=== PATIENT | male | born 1965 | race Caucasian/White ===

== ENCOUNTER 2017-01-25 10:40 | Emergency (ER) | payer BC, MEDICAID ==
--- NOTE | 2017-01-25 11:02 | EKG ---
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
[2017-01-25 11:30] VITALS: BP 110/79
[2017-01-25] MEDS ORDERED: DEXAMETHASONE 4 MG TABLET PO STA (11:35)
[2017-01-25] MEDS ORDERED: IBUPROFEN 400 MG TABLET. PO ONE (11:45)
--- NOTE | 2017-01-25 12:11 | RAD ---
Chest, 2 views, 01/25/2017: History: Chest pain with cough Comparison is made to a study from 09/21/2016. The heart size and pulmonary vascularity are normal. No pulmonary infiltrates are seen. There is no evidence of pleural fluid. Moderate spurring is present in the spine. IMPRESSION: No acute cardiopulmonary abnormality is detected.
--- NOTE | 2017-01-25 12:38 | PHYS DOC ---
Past Medical History Past Medical History: Bipolar, Depression, Seizure, TIA Additional Past Medical Histor: graves disease Past Surgical History: No Surgical History Alcohol Use: None Drug Use: None Adult General Chief Complaint Chief Complaint: CHEST PAIN HPI HPI Patient is a 51 year old male who presents by EMS from outpatient psychiatric facility. He notes 3 days of rhinorrhea, dry cough, and chest pain with cough. States this feels exactly like prior episodes of bronchitis. States he was waiting at an outpatient psychiatric facility to discuss something with administration when someone noted possible right facial droop and called EMS for him. He denies ever having neurologic symptoms and did not want to come to the emergency department for this, however he was talked into it. He denies numbness, tingling, weakness, headache, vision changes, dizziness, orthopnea, dyspnea, abdominal pain, nausea or vomiting, fever or chills. He does also note recent psychosocial stressors and admits to chronic depression from this. He denies suicidal ideation, homicidal ideation, or hallucinations. Review of Systems Review of Systems Constitutional: Denies fever or chills [] Eyes: Denies change in visual acuity, redness, or eye pain [] HENT: Denies sore throat [] Respiratory: Denies shortness of breath [] Cardiovascular: No additional information not addressed in HPI [] GI: Denies abdominal pain, nausea, vomiting, bloody stools or diarrhea [] : Denies dysuria or hematuria [] Musculoskeletal: Denies back pain or joint pain [] Integument: Denies rash or skin lesions [] Neurologic: Denies headache, focal weakness or sensory changes [] Endocrine: Denies polyuria or polydipsia [] Current Medications Current Medications Current Medications Medications (Trade) Dose Ordered Sig/Edison Start Time Stop Time Status Last Admin Dose Admin Dexamethasone (Decadron) 10 mg 1X STAT 01/25/17 11:35 01/25/17 11:38 DC 01/25/17 12:00 10 MG Ibuprofen (Motrin) 400 mg 1X ONCE 01/25/17 11:45 01/25/17 11:46 DC 01/25/17 12:16 400 MG Allergies Allergies Allergies Coded Allergies Type Severity Reaction Last Updated Verified No Known Drug Allergies 02/15/14 No Physical Exam Physical Exam Constitutional: Well developed, well nourished, no acute distress, non-toxic appearance. [] HENT: Normocephalic, atraumatic, bilateral external ears normal, oropharynx moist, no oral exudates, nose normal. [] Eyes: PERRLA, EOMI, conjunctiva normal, no discharge. [] Neck: Normal range of motion, no tenderness, supple, no stridor. [] Cardiovascular:Heart rate regular rhythm [] Lungs & Thorax: Bilateral breath sounds clear to auscultation [] Abdomen: Bowel sounds normal, soft, no tenderness. [] Skin: Warm, dry, no erythema, no rash. [] Back: Normal range of motion. [] Extremities: No tenderness, ROM intact, no edema on the palpable cord. [] Neurologic: Alert and oriented X 3, normal motor function, normal sensory function, no focal deficits noted. [] Psychologic: Affect normal, judgement normal, mood normal. [] Current Patient Data Vital Signs Vital Signs Date Time Temp Pulse Resp B/P Pulse Ox O2 Delivery O2 Flow Rate FiO2 01/25/17 11:30 70 24 110/79 96 Room Air 01/25/17 11:25 97.5 97.5 EKG EKG EKG as interpreted by me as normal sinus rhythm, rate 70, no ST-T changes, normal intervals, no ectopy Radiology/Procedures Radiology/Procedures Chest xray as interpreted by me with no acute cardiopulmonary disease process Course & Med Decision Making Course & Med Decision Making Pertinent Labs and Imaging studies reviewed. (See chart for details) He appears well on exam. Discussed symptomatic care for likely viral bronchitis. Return precautions given. He understands and agrees with plan. Dragon Disclaimer Dragon Disclaimer This electronic medical record was generated, in whole or in part, using a voice recognition dictation system. Departure Departure Impression: Primary Impression: Bronchitis Additional Impression: Depression Disposition: HOME, SELF-CARE Condition: STABLE Referrals: NO PCP (PCP) Patient Instructions: Acute Bronchitis, [id number] Additional Instructions: Take ibuprofen as needed for pain. Follow-up with your primary care doctor and psychiatrist within one week. Return for any concerns. Scripts No Active Prescriptions or Reported Meds Problem Qualifiers Additional Impression: Depression Depression Type: unspecified Qualified Code: F32.9 - Major depressive disorder, single episode, unspecified Jaspreet HERMAN MD Jan 25, 2017 12:38
== END 2017-01-25 12:50 | disposition home or self-care (01) ==
LOC: ER 10:40
DX: J40 Bronchitis, not specified as acute or chronic (principal); F32.9 Major depressive disorder, single episode, unspecified; F31.9 Bipolar disorder, unspecified; E05.00 Thyrotoxicosis with diffuse goiter without thyrotoxic crisis or storm; Z86.73 Personal history of transient ischemic attack (TIA), and cerebral infarction without residual deficits
CPT/HCPCS: 71020; 93005; 99284; J8540

== ENCOUNTER 2017-08-24 14:27 | Emergency (ER) | payer BC, MEDICAID ==
[~2017-08-24] VITALS: Ht 172.7 cm; Wt 96.2 kg
[2017-08-24] MEDS ORDERED: fentaNYL PF VIAL 100 MCG/2 ML VIAL IV ONE (15:15)
[2017-08-24 15:35] LABS: BASO # 0.1 x10^3/uL (0.0-0.2); BASO % 1 % (0-3); EOS % 4 % (0-3); HEMATOCRIT 44.6 % (39.0-53.0); HEMOGLOBIN 14.9 g/dL (13.0-17.5); LYMPH # 1.6 x10^3/uL (1.0-4.8); LYMPH % 30 % (24-48); MEAN CORPUSCULAR HEMOGLOBIN 30 pg (25-35); MEAN CORPUSCULAR HGB CONC 34 g/dL (31-37); MEAN CORPUSCULAR VOLUME 90 fL (79-100); MONO % 8 % (0-9); NEUT % 57 % (31-73); PLATELET COUNT 161 x10^3/uL (140-400); RED BLOOD COUNT 4.95 x10^6/uL (4.30-5.70); RED CELL DISTRIBUTION WIDTH 13.4 % (11.5-14.5); WHITE BLOOD COUNT 5.2 x10^3/uL (4.0-11.0)
[2017-08-24 15:45] LABS: INR 1.1 (0.8-1.1); PROTHROMBIN TIME PATIENT 13.5 SEC (11.7-14.0)
--- NOTE | 2017-08-24 15:58 | RAD ---
PQRS Compliance Statement: One or more of the following individualized dose reduction techniques were utilized for this examination: 1. Automated exposure control 2. Adjustment of the mA and/or kV according to patient size 3. Use of iterative reconstruction technique CT HEAD WITHOUT CONTRAST History: STROKE right-sided weakness since yesterday. Comparison: CT head without contrast, 09/21/2016. Procedure: Axial images are obtained of the head from the skull base through the vertex without IV contrast. Findings: Martin-white matter differentiation is preserved. The ventricles and sulci are normal for the patient's age.. No mass-effect, midline shift, hemorrhage or obvious acute infarction is identified. Basilar cisterns are patent. Bone windows demonstrate no significant calvarial abnormality.The visualized paranasal sinuses appear clear. Mastoid air cells are well aerated. IMPRESSION: No acute intracranial abnormality. Critical result, code stroke called to Dr. Pope in the ED at 3:52 PM.
[2017-08-24 16:29] LABS: CREATININE 0.7 mg/dL (0.7-1.3)
--- NOTE | 2017-08-24 16:31 | RAD ---
AP PORTABLE CHEST Clinical Indication: arrythmia. Right-sided weakness Comparison: Two-view chest 01/25/2017. Findings: The cardiomediastinal silhouette is normal. Lungs are clear. There is no pneumothorax. No pleural effusion is appreciated. There is no acute bone abnormality. IMPRESSION: No acute cardiopulmonary process.
[2017-08-24 16:35] LABS: ALBUMIN 3.3 g/dL (3.4-5.0); ALBUMIN/GLOBULIN RATIO 1.1 (1.0-1.7); TOTAL BILIRUBIN 0.3 mg/dL (0.2-1.0); TOTAL PROTEIN 6.3 g/dL (6.4-8.2)
[2017-08-24] MEDS ORDERED: CONTRAST GIVEN MC PRN (17:15)
[2017-08-24] MEDS ORDERED: IOHEXOL 300 MG/ML 100ML VIAL. IV ONE (17:15)
--- NOTE | 2017-08-24 17:28 | PHYS DOC ---
Past Medical History Past Medical History: Bipolar, Depression, Seizure, TIA Additional Past Medical Histor: graves disease Past Surgical History: No Surgical History Alcohol Use: None Drug Use: None Adult General Chief Complaint Chief Complaint: MULTIPLE COMPLAINTS HPI HPI Patient is a 52 year old stair headache, neck pain, right lower extremity, right upper extremity and is starting approximately 11 AM. Associated symptoms include mild nausea. No medications or therapy's taken prior to ED arrival. Patient denies change of vision, change of speech, extremity weakness, chest pain palpitations or shortness of air. Denies history of headaches. No falls or injuries. No other symptoms or complaints. Patient is a smoker. Denies chronic medical illness. Does not see a doctor on a routine basis. [] Review of Systems Review of Systems Review symptoms as per history of present illness. All other review symptoms are negative. [] All other systems were reviewed and found to be within normal limits, except as documented in this note. Current Medications Current Medications Current Medications Medications (Trade) Dose Ordered Sig/Edison Start Time Stop Time Status Last Admin Dose Admin Fentanyl Citrate (Fentanyl 2ml Vial) 50 mcg 1X ONCE 08/24/17 15:15 08/24/17 15:16 DC 08/24/17 15:32 50 MCG Info (Do NOT chart on this entry -- for MONITORING) 1 each PRN DAILY PRN 08/24/17 17:15 08/26/17 17:14 Iohexol (Omnipaque 300 Mg/ml) 75 ml 1X ONCE 08/24/17 17:15 08/24/17 17:16 DC 08/24/17 17:38 75 ML Allergies Allergies Allergies Coded Allergies Type Severity Reaction Last Updated Verified No Known Drug Allergies 02/15/14 No Physical Exam Physical Exam Constitutional: Well developed, well nourished, no acute distress, non-toxic appearance. [] HENT: Normocephalic, atraumatic, bilateral external ears normal, oropharynx moist, no oral exudates, nose normal. [] Eyes: PERRLA, EOMI, conjunctiva normal, no discharge. [] Neck: Normal range of motion, no neck stiffness. [] Cardiovascular:Heart rate regular rhythm, no murmur [] Lungs & Thorax: Bilateral breath sounds clear to auscultation [] Abdomen: Bowel sounds normal, soft, no tenderness, no masses, no pulsatile masses. [] Extremities: No tenderness, R lower extremity swelling. [] Neurologic: Alert and oriented X 3, CN 2-12, grossly intact, normal motor function, sensation, right upper right lower extremities, NIH stroke score of 2 per nurse stroke assessment. [] Psychologic: Affect normal, judgement normal, mood normal. [] Current Patient Data Vital Signs Vital Signs Date Time Temp Pulse Resp B/P (MAP) Pulse Ox O2 Delivery O2 Flow Rate FiO2 08/24/17 17:53 59 16 135/93 (107) 97 Room Air Lab Values Laboratory Tests Test 08/24/17 15:18 White Blood Count 5.2 x10^3/uL (4.0-11.0) Red Blood Count 4.95 x10^6/uL (4.30-5.70) Hemoglobin 14.9 g/dL (13.0-17.5) Hematocrit 44.6 % (39.0-53.0) Mean Corpuscular Volume 90 fL (79-100) Mean Corpuscular Hemoglobin 30 pg (25-35) Mean Corpuscular Hemoglobin Concent 34 g/dL (31-37) Red Cell Distribution Width 13.4 % (11.5-14.5) Platelet Count 161 x10^3/uL (140-400) Neutrophils (%) (Auto) 57 % (31-73) Lymphocytes (%) (Auto) 30 % (24-48) Monocytes (%) (Auto) 8 % (0-9) Eosinophils (%) (Auto) 4 % (0-3) H Basophils (%) (Auto) 1 % (0-3) Neutrophils # (Auto) 3.0 x10^3uL (1.8-7.7) Lymphocytes # (Auto) 1.6 x10^3/uL (1.0-4.8) Monocytes # (Auto) 0.4 x10^3/uL (0.0-1.1) Eosinophils # (Auto) 0.2 x10^3/uL (0.0-0.7) Basophils # (Auto) 0.1 x10^3/uL (0.0-0.2) Prothrombin Time 13.5 SEC (11.7-14.0) Prothrombin Time INR 1.1 (0.8-1.1) PTT 30 SEC (24-38) D-Dimer (Yesica) 0.28 ug/mlFEU (0.00-0.50) Sodium Level 142 mmol/L (136-145) Potassium Level 4.0 mmol/L (3.5-5.1) Chloride Level 106 mmol/L (98-107) Carbon Dioxide Level 28 mmol/L (21-32) Anion Gap 8 (6-14) Blood Urea Nitrogen 17 mg/dL (8-26) Creatinine 0.7 mg/dL (0.7-1.3) Estimated GFR (Cockcroft-Gault) 118.0 BUN/Creatinine Ratio 24 (6-20) H Glucose Level 109 mg/dL (70-99) H Calcium Level 9.0 mg/dL (8.5-10.1) Total Bilirubin 0.3 mg/dL (0.2-1.0) Aspartate Amino Transferase (AST) 19 U/L (15-37) Alanine Aminotransferase (ALT) 25 U/L (16-63) Alkaline Phosphatase 78 U/L (46-116) Total Protein 6.3 g/dL (6.4-8.2) L Albumin 3.3 g/dL (3.4-5.0) L Albumin/Globulin Ratio 1.1 (1.0-1.7) Thyroid Stimulating Hormone (TSH) 0.565 uIU/mL (0.358-3.74) Laboratory Tests 08/24/17 15:18 Laboratory Tests 08/24/17 15:18 EKG EKG [EKG: Sinus rhythm rate 66, no acute ST-T wave changes, QTC 415. EKG interpreted by me.] Radiology/Procedures Radiology/Procedures [Head/CT angiogram head/neck: No acute disease per radiology report] Course & Med Decision Making Course & Med Decision Making Pertinent Labs and Imaging studies reviewed. (See chart for details) [Patient with right sided numbness involving upper and lower extremities and headache. NIH stroke score of 2. No acute findings on CT angiogram and CT of head. Patient's headache treated with repeat doses of narcotic pain medication. Upon entering the room, patient is somnolent with pinpoint pupils and mild slurring of speech. He is adamant that he receives a different pain medication and accuses this provider of lying to the patient. He became verbally aggressive and demanding. I informed him I would bring in the patient advocate to address his concerns. The patient then left the emergency department eloped form the ED without warning and left AGAINST MEDICAL ADVICE with an IV in place and refused to yield to staff members to return IV. It is unclear the motivation to act in such a bizarre manner when it was understood that I would treat his pain and mid into the hospital for treatment of CVA. ] Estela Disclaimer Dragon Disclaimer This electronic medical record was generated, in whole or in part, using a voice recognition dictation system. Departure Departure Impression: Primary Impression: Headache Additional Impression: Behavioral disorder Disposition: 07 AGAINST MEDICAL ADVICE Condition: CRITICAL Referrals: NO PCP (PCP) Scripts No Active Prescriptions or Reported Meds Problem Qualifiers DANIELLE QUINTERO DO Aug 24, 2017 17:28
[2017-08-24 17:53] VITALS: BP 135/93
--- NOTE | 2017-08-24 18:23 | RAD ---
Indication: Headache and neck pain. Right-sided weakness. Symptoms began yesterday. Technique: Axial images, maximum intensity projection reformatted images, and 3-D volume rendered imaging was performed. 75 mL of intravenous Omnipaque [address] head from earlier today was available for comparison. Measurements follow NASCET methodology. One or more of the following individualized dose reduction techniques were utilized for this examination: 1. Automated exposure control 2. Adjustment of the mA and/or kV according to patient size 3. Use of iterative reconstruction technique Findings: CTA NECK: There is no brachiocephalic or subclavian stenosis. There is minimal right subclavian plaquing. Right common carotid artery is without stenosis. Right internal carotid artery is without stenosis. Left common carotid artery is without stenosis. Left internal carotid artery is without stenosis. Right vertebral artery origin is not well evaluated. Otherwise, the vertebral arteries are without stenosis or irregularity. They are codominant. There is emphysema in the lung apices. Lymph nodes along the cervical chains are presumed reactive. There are degenerative changes in the spine, mild. CTA HEAD: There is mild plaquing in the cavernous carotids without stenosis or aneurysm. Anterior cerebral arteries are without stenosis or aneurysm. Right A1 segment is absent, anterior communicating artery supplies the A2 segment. Middle cerebral arteries are without stenosis or aneurysm. Codominant vertebral arteries supply the basilar artery. No posterior circulation stenosis or aneurysm is apparent. There is a origin of the right posterior cerebral artery. There are apical lucencies within the mandible. There is also some bone destruction. Dental radiographs would be more sensitive. IMPRESSION: 1. No significant stenosis involving the common or internal carotid arteries. 2. No significant stenosis or aneurysm involving the intracranial circulation. Electronically signed by: Carrington Che MD (08/24/2017 6:20 PM) [id number]
--- NOTE | 2017-08-25 08:51 | EKG ---
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
== END 2017-08-24 18:30 | disposition left against medical advice (07) ==
LOC: ER 14:27
DX: R51 Headache (principal); F91.9 Conduct disorder, unspecified; M54.2 Cervicalgia; R11.0 Nausea; R20.0 Anesthesia of skin; M79.604 Pain in right leg; E05.00 Thyrotoxicosis with diffuse goiter without thyrotoxic crisis or storm; F31.9 Bipolar disorder, unspecified; Z86.73 Personal history of transient ischemic attack (TIA), and cerebral infarction without residual deficits
CPT/HCPCS: 36415; 70450; 70496; 70498; 71010; 80053; 84443; 85025; 85379; 85610; 85730; 93005; 96374; 99285; J3010; Q9967

== ENCOUNTER 2021-12-31 14:46 | Emergency (ER) | payer OTHER ==
[~2021-12-31] VITALS: Ht 170.2 cm; Wt 108.2 kg
[~2021-12-31 14:46] MED LIST: CARI1.5C PO; ZOLP10TA PO
[2021-12-31] MEDS ORDERED: FAMOTIDINE 20 MG/2 ML VIAL IVP ONE (16:00)
[2021-12-31] MEDS ORDERED: IV NORMAL SALINE 1000ML BAG 1,000 ML IV ONE (16:00)
--- NOTE | 2021-12-31 16:36 | RAD ---
Exam: Chest one view INDICATION: Epigastric pain TECHNIQUE: Frontal view of the chest Comparisons: 11/02/2021 FINDINGS: Heart is mildly enlarged. Pulmonary vessels are within normal limits. Hazy opacity in lungs bilaterally. No pleural effusion. IMPRESSION: Findings which likely related to mild pulmonary edema. Superimposed infectious process is difficult t o exclude. Electronically signed by: Berenice Grullon MD (12/31/2021 4:33 PM) [facility]
[2021-12-31 16:38] LABS: BASO # 0.1 x10^3/uL (0.0-0.2); BASO % 1 % (0-3); EOS # 0.1 x10^3/uL (0.0-0.7); EOS % 1 % (0-3); HEMOGLOBIN 15.1 g/dL (13.0-17.5); LYMPH # 1.9 x10^3/uL (1.0-4.8); LYMPH % 22 % (24-48); MEAN CORPUSCULAR HEMOGLOBIN 27 pg (25-35); MEAN CORPUSCULAR HGB CONC 32 g/dL (31-37); MEAN CORPUSCULAR VOLUME 86 fL (79-100); MONO # 0.8 x10^3/uL (0.0-1.1); MONO % 10 % (0-9); NEUT # 5.5 x10^3/uL (1.8-7.7); NEUT % 66 % (31-73); PLATELET COUNT 246 x10^3/uL (140-400); RED BLOOD COUNT 5.49 x10^6/uL (4.30-5.70); RED CELL DISTRIBUTION WIDTH 15.6 % (11.5-14.5); WHITE BLOOD COUNT 8.4 x10^3/uL (4.0-11.0)
[2021-12-31 16:52] LABS: BACTERIA,URINE 0 /HPF (0-FEW); HYALINE CASTS, URINE MANY /HPF; WBC,URINE OCC /HPF (0-4)
[2021-12-31 18:52] LABS: CALCIUM 9.9 mg/dL (8.5-10.1); CREATININE 1.7 mg/dL (0.7-1.3); GFR 41.8; POTASSIUM 3.7 mmol/L (3.5-5.1)
[2021-12-31 18:58] LABS: ALBUMIN 4.2 g/dL (3.4-5.0); ALBUMIN/GLOBULIN RATIO 1.2 (1.0-1.7); MAGNESIUM 2.1 mg/dL (1.8-2.4); TOTAL BILIRUBIN 1.8 mg/dL (0.2-1.0); TOTAL PROTEIN 7.8 g/dL (6.4-8.2)
[2021-12-31 19:04] VITALS: BP 141/92
[2021-12-31] MEDS ORDERED: FAMO-63 PO (19:11)
--- NOTE | 2021-12-31 19:11 | PHYS DOC ---
Past Medical History Past Medical History: Bipolar, CVA, Depression, Seizure, TIA, Other Additional Past Medical Histor: graves disease Past Surgical History: No Surgical History Smoking Status: Current Some Day Smoker Additional Information: "NOT VERY MUCH" Alcohol Use: None Drug Use: None Social History Narrative: SATURDAY METH USE General Adult EDM: Chief Complaint: ABDOMINAL PAIN HPI: HPI: Patient is a 56-year-old male who presents to the emergency department complaining of epigastric pain for the past 4 months. Patient states he was released 2 days ago from [facility] after being admitted for congestive heart failure. Patient states he did not address his epigastric pain, they only gave him Protonix and told him to see a GI specialist. Patient denies chest pain, shortness of breath, chest or nasal congestion, patient denies recent fever or chills, patient states he has taken the Protonix 1 time and did not get any relief. Patient denies other physical complaints or physical concerns. Patient reports he is a daily cigarette smoker, occasional alcohol use, has used marijuana, methamphetamines, and "other stuff "in the recent past. Patient denies any illicit drug use over the past 2 weeks. Patient denies IV drug use. Review of Systems: Review of Systems: 14 body systems of review of systems have been reviewed. See HPI for pertinent positives and negative responses, otherwise all other systems are negative, nonpertinent or noncontributory. Constitutional: Negative except as outlined in HPI above. Skin: Negative except as outlined in HPI above. Eyes: Negative except as outlined in HPI above. HENT: Negative except as outlined in HPI above. Respiratory: Negative except as outlined in HPI above. Cardiovascular: Negative except as outlined in HPI above. GI: Negative except as outlined in HPI above. : Negative except as outlined in HPI above. Musculoskeletal: Negative except as outlined in HPI above. Integument: Negative except as outlined in HPI above. Neurologic: Negative except as outlined in HPI above. Endocrine: Negative except as outlined in HPI above. Lymphatic: Negative except as outlined in HPI above. Psychiatric: Negative except as outlined in HPI above. Heart Score: C/O Chest Pain: No Risk Factors: Risk Factors: DM, Current or recent (<one month) smoker, HTN, HLP, family history of CAD, obesity. Risk Scores: Score 0 - 3: 2.5% MACE over next 6 weeks - Discharge Home Score 4 - 6: 20.3% MACE over next 6 weeks - Admit for Clinical Observation Score 7 - 10: 72.7% MACE over next 6 weeks - Early Invasive Strategies Current Medications: Current Medications Medications (Trade) Dose Ordered Sig/Edison Start Time Stop Time Status Last Admin Dose Admin Famotidine (Pepcid Vial) 20 mg 1X ONCE 12/31/21 16:00 12/31/21 16:01 DC 12/31/21 16:57 20 MG Sodium Chloride 1,000 ml @ 1,000 mls/hr 1X ONCE 12/31/21 16:00 12/31/21 16:59 DC 12/31/21 16:57 1,000 MLS/HR Allergies: Allergies: Allergies Coded Allergies Type Severity Reaction Last Updated Verified No Known Drug Allergies 12/31/21 No Physical Exam: PE: Constitutional: Well developed, well nourished, no acute distress, non-toxic appearance. 56-year-old male in no apparent distress. HENT: Normocephalic, atraumatic. Eyes: Conjunctiva normal, no discharge. Neck: Normal range of motion, no stridor. Cardiovascular: No cyanosis appreciated, distal cap refill less than 2 seconds. Regular rate and rhythm, heart sounds S1-S2 dilatation. Lungs & Thorax: Patient is in no respiratory distress, no audible adventitious lung sounds appreciated. Lung sounds diminished bilateral bases, clear to auscultation all lung torrez. Abdomen: Nontender, no abnormalities noted. Abdomen round, patient morbidly obese, BMI 37.4. Skin: Warm, dry, no erythema, no rash. Back: No tenderness, no deformities. Extremities: No tenderness, no cyanosis, no clubbing, ROM intact, no edema. Neurologic: Alert and oriented X 3, normal motor function, normal sensory function, no focal deficits noted. Psychologic: Affect normal, judgement normal, mood normal. Current Patient Data: Labs: Laboratory Tests Test 12/31/21 15:35 12/31/21 16:18 Urine Collection Type Unknown Urine Color (Auto) Light yellow Urine Turbidity Clear Urine pH (Auto) 5.5 (<5.0-8.0) Urine Specific [place] 1.010 (1.000-1.030) Urine Protein (Auto) Negative mg/dL (Negative) Urine Glucose (Auto)(UA) 100 mg/dL (Negative) Urine Ketones (Auto) Negative mg/dL (Negative) Urine Blood (Auto) Negative (Negative) Urine Nitrite Negative (Negative) Urine Bilirubin (Auto) Negative (Negative) Urine Urobilinogen (Auto) Normal mg/dL (Normal) Urine Leukocyte Esterase (Auto) Negative (Negative) Urine RBC 1-2 /HPF (0-2) Urine WBC Occ /HPF (0-4) Urine Squamous Epithelial Cells Occ /LPF Urine Bacteria 0 /HPF (0-FEW) Urine Hyaline Casts Many /HPF White Blood Count 8.4 x10^3/uL (4.0-11.0) Red Blood Count 5.49 x10^6/uL (4.30-5.70) Hemoglobin 15.1 g/dL (13.0-17.5) Hematocrit 47.0 % (39.0-53.0) Mean Corpuscular Volume 86 fL (79-100) Mean Corpuscular Hemoglobin 27 pg (25-35) Mean Corpuscular Hemoglobin Concent 32 g/dL (31-37) Red Cell Distribution Width 15.6 % (11.5-14.5) H Platelet Count 246 x10^3/uL (140-400) Neutrophils (%) (Auto) 66 % (31-73) Lymphocytes (%) (Auto) 22 % (24-48) L Monocytes (%) (Auto) 10 % (0-9) H Eosinophils (%) (Auto) 1 % (0-3) Basophils (%) (Auto) 1 % (0-3) Neutrophils # (Auto) 5.5 x10^3/uL (1.8-7.7) Lymphocytes # (Auto) 1.9 x10^3/uL (1.0-4.8) Monocytes # (Auto) 0.8 x10^3/uL (0.0-1.1) Eosinophils # (Auto) 0.1 x10^3/uL (0.0-0.7) Basophils # (Auto) 0.1 x10^3/uL (0.0-0.2) Sodium Level 139 mmol/L (136-145) Potassium Level 3.7 mmol/L (3.5-5.1) Chloride Level 94 mmol/L (98-107) L Carbon Dioxide Level 28 mmol/L (21-32) Anion Gap 17 (6-14) H Blood Urea Nitrogen 42 mg/dL (8-26) H Creatinine 1.7 mg/dL (0.7-1.3) H Estimated GFR (Cockcroft-Gault) 41.8 BUN/Creatinine Ratio 25 (6-20) H Glucose Level 107 mg/dL (70-99) H Calcium Level 9.9 mg/dL (8.5-10.1) Magnesium Level 2.1 mg/dL (1.8-2.4) Total Bilirubin 1.8 mg/dL (0.2-1.0) H Aspartate Amino Transferase (AST) 101 U/L (15-37) H Alanine Aminotransferase (ALT) 98 U/L (16-63) H Alkaline Phosphatase 93 U/L (46-116) Troponin I High Sensitivity 61 ng/L (4-75) CR-Cyp-F-Type Natriuretic Peptide 18106 pg/mL (0-124) H Total Protein 7.8 g/dL (6.4-8.2) Albumin 4.2 g/dL (3.4-5.0) Albumin/Globulin Ratio 1.2 (1.0-1.7) Lipase 42 U/L (73-393) L Laboratory Tests 12/31/21 16:18 Laboratory Tests 12/31/21 16:18 Vital Signs: Vital Signs Date Time Temp Pulse Resp B/P (MAP) Pulse Ox O2 Delivery O2 Flow Rate FiO2 12/31/21 15:50 122 26 136/99 (111) 20 Room Air 12/31/21 15:10 97.7 97.7 EKG: EKG: EKG performed at 1610 by ED nursing staff shows a sinus tachycardia with left axis deviation, heart rate 127 bpm, MI interval 0.138, QTc interval 0.476, no acute STEMI, no ACS, no acute ischemia appreciated, EKG interpreted by ED attending physician Dr. Carrillo. Radiology/Procedures: Radiology/Procedures: PROCEDURE: CHEST AP ONLY Exam: Chest one view INDICATION: Epigastric pain TECHNIQUE: Frontal view of the chest Comparisons: 11/02/2021 FINDINGS: Heart is mildly enlarged. Pulmonary vessels are within normal limits. Hazy opacity in lungs bilaterally. No pleural effusion. IMPRESSION: Findings which likely related to mild pulmonary edema. Superimposed infectious process is difficult to exclude. Electronically signed by: Berenice Grullon MD (12/31/2021 4:33 PM) [facility] Course & Med Decision Making: Course & Med Decision Making Pertinent Labs and Imaging studies reviewed. (See chart for details) 56-year-old male, vital signs reviewed, presents emergency department concerning epigastric pain for several months. Physical examination consistent with gastric reflux versus esophagitis versus other upper GI concerns. Will order CBC, CMP, EKG, high-sensitivity troponin I, NT proBNP related to patient's history of congestive heart failure, IV saline lock, IV Pepcid. Noted that patient's triage pulse rate 90, patient was very agitated during EKG per ED nurse report, heart rate for EKG was 127 bpm. Upon reevaluation of the patient after EKG, pulse rate at 92, patient states he was upset at the male tech that was in the room doing his EKG. Patient does have noted elevated NT proBNP, patient has history of congestive heart failure, was just released yesterday from [facility] for exacerbation of congestive heart failure/COPD. Patient is in no respiratory distress, patient's vital signs are within normal limits. Patient reports IV Pepcid helped his 10 out of 10 abdominal pain reduced to a 1 out of 10. Patient states he feels much better and wishes to go home now. I discussed at length with patient strict follow-up with GI specialty. Call tomorrow for an appointment, follow-up with primary care for ongoing management of epigastric di scomfort. Discussed with patient will start on Pepcid regimen, take 1 tablet 20 mg nightly. Reviewed return to ER precautions and concerns. Patient gave verbal understanding of and is amenable to ED discharge planning. Discussed with the patient all findings and diagnostic testing as well as the need to follow-up with their primary care provider for further evaluation and treatment or return to the ED if any new or worsening symptoms. Strict return precautions were also discussed at length, the patient voiced understanding and agreement with the discharge planning. The patient was nontoxic in appearance, in no apparent distress, and hemodynamically stable at the time of disposition. Dragon Disclaimer: Dragon Disclaimer: This electronic medical record was generated, in whole or in part, using a voice recognition dictation system. Departure Departure Impression: Primary Impression: Abdominal pain Qualified Codes: R10.9 - Unspecified abdominal pain Disposition: HOME / SELF CARE / HOMELESS Condition: GOOD Referrals: EL HAYES (PCP) Patient Instructions: Abdominal Pain Additional Instructions: You were seen today in the emergency department for abdominal pain. Your lab work did not show any concerning findings, however I did give you Pepcid in your IV which seemed to have resolved your pain. I will prescribe for you a Pepcid regimen, please take each night before going to bed, I have also recommended a GI specialist for you to follow-up with Dr. Joiner, please call tomorrow morning for the soonest appointment. Thank you for visiting our Emergency Department. It was a pleasure taking care of you today in the emergency department and we appreciate you trusting us with your care. If any additional problems come up don't hesitate to return to visit us. Please follow up with your primary care provider so they can plan additional care if needed and know about the problem that you had. If symptoms worsen come back to the Emergency Department. Any concerning symptoms that start such as chest pain, shortness of air, weakness or numbness on one side of the body, running high fevers or any other concerning symptoms return to the ER. Scripts Famotidine (PEPCID) 20 Mg Tablet 20 MG PO HS for abdominal pain, #30 TAB 2 Refills Prov: MANUELA PICHARDO APRN 12/31/21 MANUELA PICHARDO APRN Dec 31, 2021 19:11
--- NOTE | 2022-01-01 04:48 | EKG ---
[facility] [address] [place] [address] Test Date: 2021-12-31 Test Time: 16:10:57 Pat Name: CHARLEEN ALFREDO Department: Room: Gender: M Buffer Automatic: : 1965 Requested By: MANUELA PICHARDO Order Number: [id number] Reading MD: Joaquin Merino MD Measurements Intervals [place] Rate: 127 P: 90 LA: 138 QRS: -32 QRSD: 94 T: 154 QT: 324 QTc: 476 Interpretive Statements ATRIAL FLUTTER NON-SPECIFIC ST/T CHANGES Electronically Signed On 01-02-2022 6:57:17 CDT by Joaquin Merino MD
== END 2021-12-31 19:19 | disposition home or self-care (01) ==
LOC: ER 14:46
DX: R10.13 Epigastric pain (principal); F31.9 Bipolar disorder, unspecified; F17.200 Nicotine dependence, unspecified, uncomplicated; Z86.73 Personal history of transient ischemic attack (TIA), and cerebral infarction without residual deficits
CPT/HCPCS: 36415; 71045; 80053; 81001; 83690; 83735; 83880; 84484; 85025; 93005; 96361; 96374; 99285; J3490; J7030